=== PATIENT | female | born 1940 | race Caucasian/White ===

== ENCOUNTER → 2017-11-05 13:18 | Outpatient (CLI) | payer OTHER, SELFPAY ==
[2017-11-05 13:52] LABS: Hematocrit 29.9 % (36-46); Hemoglobin 10.3 g/dL (12.0-16.0)
[2017-11-05 14:05] LABS: Hemoglobin A1C% w Est Avg Glu 7.8 % (4.0-6.0)
[2017-11-05 14:32] LABS: HEMOLYSIS < 15 (0-50); Iron 42 ug/dL (37-170)
[2017-11-05 14:39] LABS: Transferrin 228 mg/dL (206-381)
[2017-11-05 14:44] LABS: Percent Iron Saturation 14 % (15-50); Total Iron Binding Capacity 301 ug/mL (265-497)
[2017-11-05 14:47] LABS: Alanine Aminotransferase 25 IU/L (9-52); Albumin Globulin Ratio 1.4 (1.0-2.8); Alkaline Phosphatase 78 U/L (38-126); Aspartate Aminotransferase 20 IU/L (14-36); BUN Creatinine Ratio 18.5 (6-22); Bilirubin Total 0.4 mg/dL (0.2-1.3); Calcium 10.6 mg/dL (8.4-10.2); Estimated Glomerular Filt Rate 13.6 mL/min (>60); Globulin 2.9 g/dL (1.7-4.1); Glucose 206 mg/dL (80-110); HEMOLYSIS 18 (0-50); Potassium 3.7 mmol/L (3.4-5.1); Sodium 141 mmol/L (137-145); Total Protein 6.9 g/dL (6.3-8.2)
[2017-11-05 15:07] LABS: Ferritin 79.1 ng/mL (11.1-264)
[2017-11-09 13:30] LABS: Parathyroid Hormone Int 9 pg/mL (14-64)
== END ==
PROVIDERS: Family Provider Family Medicine; PCP Family Medicine; Visit Provider Student in an Organized Health Care Education/Training Program
DX: N05.9 Unspecified nephritic syndrome with unspecified morphologic changes (principal); D50.0 Iron deficiency anemia secondary to blood loss (chronic); D64.9 Anemia, unspecified; N25.81 Secondary hyperparathyroidism of renal origin; E11.319 Type 2 diabetes mellitus with unspecified diabetic retinopathy without macular edema; E11.21 Type 2 diabetes mellitus with diabetic nephropathy
CPT/HCPCS: 36415; 80053; 82728; 83036; 83540; 83550; 83970; 85014; 85018

== ENCOUNTER → 2017-12-30 14:39 | Outpatient (CLI) | payer OTHER, SELFPAY ==
[2017-12-30 15:39] LABS: Hematocrit 29.4 % (36-46); Hemoglobin 9.8 g/dL (12.0-16.0)
[2017-12-30 15:59] LABS: BUN Creatinine Ratio 15.5 (6-22); Blood Urea Nitrogen 48 mg/dL (7-17); Calcium 9.4 mg/dL (8.4-10.2); Carbon Dioxide 30 mmol/L (22-32); Chloride 100 mmol/L (98-107); Estimated Glomerular Filt Rate 14.6 mL/min (>60); Glucose 83 mg/dL (80-110); HEMOLYSIS < 15 (0-50); Iron 75 ug/dL (37-170); Potassium 3.7 mmol/L (3.4-5.1); Sodium 140 mmol/L (137-145)
[2017-12-30 16:09] LABS: Percent Iron Saturation 26 % (15-50); Total Iron Binding Capacity 294 ug/dL (265-497); Transferrin 234 mg/dL (206-381)
[2017-12-30 16:34] LABS: Ferritin 73.3 ng/mL (11.1-264)
[2018-01-01 15:07] LABS: Parathyroid Hormone Int 114 pg/mL (14-64)
== END ==
PROVIDERS: PCP Family Medicine; Visit Provider Student in an Organized Health Care Education/Training Program
DX: N05.9 Unspecified nephritic syndrome with unspecified morphologic changes (principal); D50.0 Iron deficiency anemia secondary to blood loss (chronic); D64.9 Anemia, unspecified; N25.81 Secondary hyperparathyroidism of renal origin
CPT/HCPCS: 36415; 80048; 82728; 83540; 83550; 83970; 85014; 85018

== ENCOUNTER → 2018-02-11 11:42 | Outpatient (CLI) | payer OTHER, SELFPAY ==
[2018-02-11 12:22] LABS: Hematocrit 28.4 % (36-46); Hemoglobin 9.7 g/dL (12.0-16.0)
[2018-02-11 12:34] LABS: BUN Creatinine Ratio 16.2 (6-22); Blood Urea Nitrogen 55 mg/dL (7-17); Calcium 9.2 mg/dL (8.4-10.2); Carbon Dioxide 23 mmol/L (22-32); Chloride 105 mmol/L (98-107); Estimated Glomerular Filt Rate 13.1 mL/min (>60); Glucose 105 mg/dL (80-110); HEMOLYSIS < 15 (0-50); Potassium 3.5 mmol/L (3.4-5.1); Sodium 142 mmol/L (137-145)
[2018-02-11 12:40] LABS: HEMOLYSIS < 15 (0-50); Iron 49 ug/dL (37-170)
[2018-02-11 12:50] LABS: Percent Iron Saturation 17 % (15-50); Total Iron Binding Capacity 291 ug/dL (265-497); Transferrin 237 mg/dL (206-381)
[2018-02-11 13:04] LABS: Ferritin 82.7 ng/mL (11.1-264)
[2018-02-15 14:48] LABS: Parathyroid Hormone Int 147 pg/mL (14-64)
== END ==
PROVIDERS: PCP Family Medicine; Visit Provider Student in an Organized Health Care Education/Training Program
DX: N05.9 Unspecified nephritic syndrome with unspecified morphologic changes (principal); D50.0 Iron deficiency anemia secondary to blood loss (chronic); D64.9 Anemia, unspecified; N25.81 Secondary hyperparathyroidism of renal origin
CPT/HCPCS: 36415; 80048; 82728; 83540; 83550; 83970; 85014; 85018

== ENCOUNTER → 2018-03-17 10:35 | Outpatient (CLI) | payer OTHER, SELFPAY ==
[2018-03-17 11:28] LABS: Hematocrit 29.7 % (36-46); Hemoglobin 10.1 g/dL (12.0-16.0)
[2018-03-17 11:46] LABS: Hemoglobin A1C% w Est Avg Glu 5.7 % (4.0-6.0)
[2018-03-17 11:52] LABS: HEMOLYSIS < 15 (0-50); Iron 36 ug/dL (37-170)
[2018-03-17 11:56] LABS: Alanine Aminotransferase 36 IU/L (9-52); Albumin 3.7 g/dL (3.5-5.0); Albumin Globulin Ratio 1.4 (1.0-2.8); Alkaline Phosphatase 87 U/L (38-126); Aspartate Aminotransferase 30 IU/L (14-36); BUN Creatinine Ratio 14.7 (6-22); Bilirubin Total 0.4 mg/dL (0.2-1.3); Blood Urea Nitrogen 56 mg/dL (7-17); Calcium 9.6 mg/dL (8.4-10.2); Carbon Dioxide 19 mmol/L (22-32); Chloride 110 mmol/L (98-107); Estimated Glomerular Filt Rate 11.5 mL/min (>60); Globulin 2.7 g/dL (1.7-4.1); Glucose 79 mg/dL (80-110); HEMOLYSIS < 15 (0-50); Potassium 4.9 mmol/L (3.4-5.1); Sodium 144 mmol/L (137-145); Total Protein 6.4 g/dL (6.3-8.2)
[2018-03-17 12:02] LABS: Percent Iron Saturation 12 % (15-50); Total Iron Binding Capacity 292 ug/dL (265-497); Transferrin 239 mg/dL (206-381)
== END ==
PROVIDERS: Family Provider Family Medicine; PCP Family Medicine; Visit Provider Student in an Organized Health Care Education/Training Program
DX: D50.0 Iron deficiency anemia secondary to blood loss (chronic) (principal); D64.9 Anemia, unspecified; I50.32 Chronic diastolic (congestive) heart failure; N05.9 Unspecified nephritic syndrome with unspecified morphologic changes; E11.21 Type 2 diabetes mellitus with diabetic nephropathy; E11.319 Type 2 diabetes mellitus with unspecified diabetic retinopathy without macular edema
CPT/HCPCS: 36415; 80053; 82728; 83036; 83540; 83550; 83880; 85014; 85018

== ENCOUNTER → 2018-03-22 12:34 | Outpatient (CLI) | payer OTHER, SELFPAY ==
--- NOTE | 2018-03-22 | DI.RAD.S_ITS ---
PROCEDURE: XR CHEST 2V INDICATIONS: SHORTNESS OF BREATH TECHNIQUE: 2 views of the chest were acquired. COMPARISON: [facility], , CHEST 2 VIEW, 04/12/2015, 10:38. FINDINGS: Surgical changes and devices: None. Lungs and pleura: The bilateral interstitial infiltrates consistent with pulmonary edema. Small bilateral pleural effusions are present. There is a nodular density in the left lung base. No pneumothorax. Mediastinum: Mediastinal contours are normal. Heart size is mildly prominent. Bones and chest wall: No suspicious bony abnormalities. Soft tissues appear unremarkable. IMPRESSION: 1. Congestive heart failure. 2. A nodular density in the left lung base. Recommend attention to the area on followup chest x-ray. If it persists on followup exam, a chest CT is suggested for further evaluation. Dictated by: Leti Simmons M.D. on 03/22/2018 at 17:04 Approved by: Leti Simmons M.D. on 03/22/2018 at 17:06
[2018-03-22 15:45] LABS: Hepatitis B Surface Antigen NEGATIVE s/c (NEGATIVE)
[2018-03-22 16:09] LABS: Hep C Virus Ab w/Reflex Quant NEGATIVE s/c (NEGATIVE)
[2018-03-25 07:18] LABS: Hepatitis B Core Antibody Nonreactive (Nonreactive)
[2018-03-25 07:51] LABS: Hepatitis B Surf Ab Qualitativ Nonreactive (Nonreactive)
== END ==
PROVIDERS: Family Provider Family Medicine; PCP Family Medicine; Visit Provider Student in an Organized Health Care Education/Training Program
DX: R06.02 Shortness of breath (principal); E87.70 Fluid overload, unspecified; B19.10 Unspecified viral hepatitis B without hepatic coma; B17.10 Acute hepatitis C without hepatic coma
CPT/HCPCS: 36415; 71046; 86704; 86706; 86803; 87340

== ENCOUNTER → 2018-06-06 12:57 | Outpatient (CLI) | payer OTHER, SELFPAY ==
--- NOTE | 2018-06-06 12:58 | DI.RAD.S_ITS ---
PROCEDURE: XR CHEST 2V INDICATIONS: Pulmonary nodule TECHNIQUE: 2 views of the chest were acquired. COMPARISON: [facility], CR, XR CHEST 2V, 03/22/2018, 12:56. FINDINGS: Surgical changes and devices: None. Lungs and pleura: No pleural effusions or pneumothorax. Lungs are clear. A previously seen left basilar pulmonary nodule has resolved Mediastinum: Mediastinal contours are normal. Heart size is normal. Bones and chest wall: No suspicious bony abnormalities. Soft tissues appear unremarkable. IMPRESSION: No acute disease. Previous left basilar nodular opacity has resolved since 03/22/18. Dictated by: Doroteo Thorne M.D. on 06/06/2018 at 14:43 Approved by: Doroteo Thorne M.D. on 06/06/2018 at 14:44
== END ==
PROVIDERS: PCP Family Medicine; Visit Provider Family Medicine
DX: R91.1 Solitary pulmonary nodule (principal)
CPT/HCPCS: 71046

== ENCOUNTER → 2018-07-15 09:08 | Outpatient (CLI) | payer MEDICARE, SELFPAY ==
[2018-07-15 09:46] LABS: Hemoglobin A1C% w Est Avg Glu 6.9 % (4.0-6.0)
[2018-07-15 09:58] LABS: Alanine Aminotransferase 18 IU/L (9-52); Albumin 4.3 g/dL (3.5-5.0); Albumin Globulin Ratio 1.5 (1.0-2.8); Alkaline Phosphatase 109 U/L (38-126); Aspartate Aminotransferase 21 IU/L (14-36); Bilirubin Total 0.3 mg/dL (0.2-1.3); Blood Urea Nitrogen 21 mg/dL (7-17); Calcium 9.2 mg/dL (8.4-10.2); Carbon Dioxide 26 mmol/L (22-32); Chloride 100 mmol/L (98-107); Estimated Glomerular Filt Rate 15.2 mL/min (>60); Globulin 2.9 g/dL (1.7-4.1); Glucose 110 mg/dL (80-110); HEMOLYSIS < 15 (0-50); Potassium 4.2 mmol/L (3.4-5.1); Sodium 139 mmol/L (137-145); Total Protein 7.2 g/dL (6.3-8.2)
== END ==
PROVIDERS: PCP Family Medicine; Visit Provider Family Medicine
DX: E11.22 Type 2 diabetes mellitus with diabetic chronic kidney disease (principal); I10 Essential (primary) hypertension; Z79.4 Long term (current) use of insulin
CPT/HCPCS: 36415; 80053; 83036

== ENCOUNTER → 2018-10-14 08:42 | Outpatient (CLI) | payer MEDICARE, SELFPAY ==
[2018-10-14 09:33] LABS: Add Manual Diff / Slide Review NO; Basophils Absolute Auto 100 /uL (0-100); Basophils Percent Auto 1.5 % (0-2); Eosinophils Absolute Auto 300 /uL (0-450); Eosinophils Percent Auto 5.4 % (2-4); Hematocrit 31.9 % (36-46); Hemoglobin 11.1 g/dL (12.0-16.0); Lymphocytes Absolute Auto 1400 /uL (1100-4500); Lymphocytes Percent Auto 29.5 % (25-40); Mean Corpuscular HGB Conc 34.8 % (30-36); Mean Corpuscular Hemoglobin 34.8 PG (26-34); Monocytes Absolute Auto 500 /uL (0-900); Monocytes Percent Auto 9.7 % (3-14); Neutrophils Absolute Auto 2600 /uL (1500-7000); Neutrophils Percent Auto 53.9 % (50-75); Platelet Count 230 X10^3/uL (150-400); Red Blood Cell Count 3.19 X10^6/uL (4.0-5.2); Red Cell Distribution Width 14.4 % (11.6-14.8); White Blood Cell Count 4.8 X10^3/uL (4.5-11.0)
[2018-10-14 09:48] LABS: Hemoglobin A1C% w Est Avg Glu 6.4 % (4.0-6.0)
[2018-10-14 09:50] LABS: Alanine Aminotransferase 14 IU/L (9-52); Albumin 4.3 g/dL (3.5-5.0); Albumin Globulin Ratio 1.5 (1.0-2.8); Alkaline Phosphatase 109 U/L (38-126); Aspartate Aminotransferase 23 IU/L (14-36); BUN Creatinine Ratio 7.4 (6-22); Bilirubin Total 0.5 mg/dL (0.2-1.3); Blood Urea Nitrogen 26 mg/dL (7-17); Calcium 8.7 mg/dL (8.4-10.2); Carbon Dioxide 27 mmol/L (22-32); Chloride 96 mmol/L (98-107); Cholesterol 123 mg/dL (140-199); Estimated Glomerular Filt Rate 12.7 mL/min (>60); Globulin 2.9 g/dL (1.7-4.1); Glucose 151 mg/dL (80-110); HDL Cholesterol 47 mg/dL (40-60); HEMOLYSIS < 15 (0-50); LDL Cholesterol Calculated 53 mg/dL (<100); Sodium 136 mmol/L (137-145); Total Protein 7.2 g/dL (6.3-8.2); Triglycerides 114 mg/dL (35-150)
[2018-10-14 14:19] LABS: Thyroid Stimulating Hormone 2.62 uIU/mL (0.47-4.68)
== END ==
PROVIDERS: PCP Family Medicine; Visit Provider Family Medicine
DX: E03.9 Hypothyroidism, unspecified (principal); E11.22 Type 2 diabetes mellitus with diabetic chronic kidney disease; I10 Essential (primary) hypertension; Z51.81 Encounter for therapeutic drug level monitoring; Z79.4 Long term (current) use of insulin
CPT/HCPCS: 36415; 80053; 80061; 83036; 84443; 85025

== ENCOUNTER → 2019-01-25 09:22 | Outpatient (CLI) | payer MEDICARE, SELFPAY ==
[2019-01-25 11:04] LABS: Alanine Aminotransferase 11 IU/L (9-52); Albumin 4.2 g/dL (3.5-5.0); Albumin Globulin Ratio 1.6 (1.0-2.8); Alkaline Phosphatase 116 U/L (38-126); Aspartate Aminotransferase 21 IU/L (14-36); Bilirubin Total 0.4 mg/dL (0.2-1.3); Blood Urea Nitrogen 28 mg/dL (7-17); Calcium 9.2 mg/dL (8.4-10.2); Carbon Dioxide 27 mmol/L (22-32); Chloride 99 mmol/L (98-107); Cholesterol 110 mg/dL (140-199); Estimated Glomerular Filt Rate 10.9 mL/min (>60); Globulin 2.7 g/dL (1.7-4.1); Glucose 108 mg/dL (80-110); HDL Cholesterol 53 mg/dL (40-60); HEMOLYSIS < 15 (0-50); LDL Cholesterol Calculated 37 mg/dL (<100); Potassium 4.8 mmol/L (3.4-5.1); Sodium 140 mmol/L (137-145); Total Protein 6.9 g/dL (6.3-8.2); Triglycerides 101 mg/dL (35-150)
[2019-01-25 11:12] LABS: Hemoglobin A1C% w Est Avg Glu 6.8 % (4.0-6.0)
== END ==
PROVIDERS: PCP Family Medicine; Visit Provider Family Medicine
DX: E78.5 Hyperlipidemia, unspecified (principal); E11.22 Type 2 diabetes mellitus with diabetic chronic kidney disease; Z79.4 Long term (current) use of insulin; Z99.2 Dependence on renal dialysis
CPT/HCPCS: 36415; 80053; 80061; 83036

== ENCOUNTER → 2019-01-27 11:27 | Outpatient (CLI) | payer MEDICARE, SELFPAY ==
[2019-01-27 12:09] LABS: Thyroid Stimulating Hormone 3.43 uIU/mL (0.47-4.68)
== END ==
PROVIDERS: PCP Family Medicine; Visit Provider Family Medicine
DX: E11.22 Type 2 diabetes mellitus with diabetic chronic kidney disease (principal); Z79.4 Long term (current) use of insulin
CPT/HCPCS: 84443

== ENCOUNTER → 2019-12-11 09:53 | Outpatient (CLI) | payer MEDICARE, SELFPAY ==
[2019-12-11 11:26] LABS: Add Manual Diff / Slide Review NO; Basophils Absolute Auto 100 /uL (0-100); Basophils Percent Auto 1.8 % (0-2); Eosinophils Absolute Auto 300 /uL (0-450); Hematocrit 35.7 % (36-46); Hemoglobin 12.1 g/dL (12.0-16.0); Lymphocytes Absolute Auto 1800 /uL (1100-4500); Lymphocytes Percent Auto 28.5 % (25-40); Mean Corpuscular HGB Conc 33.9 % (30-36); Mean Corpuscular Hemoglobin 34.2 PG (26-34); Monocytes Absolute Auto 500 /uL (0-900); Monocytes Percent Auto 8.4 % (3-14); Neutrophils Absolute Auto 3600 /uL (1500-7000); Neutrophils Percent Auto 57.3 % (50-75); Platelet Count 281 X10^3/uL (150-400); Red Blood Cell Count 3.53 X10^6/uL (4.0-5.2); Red Cell Distribution Width 14.3 % (11.6-14.8); White Blood Cell Count 6.3 X10^3/uL (4.5-11.0)
[2019-12-11 11:31] LABS: Hemoglobin A1C% w Est Avg Glu 6.9 % (4.0-6.0)
[2019-12-11 12:13] LABS: Alanine Aminotransferase 14 IU/L (<35); Albumin 4.2 g/dL (3.5-5.0); Albumin Globulin Ratio 1.7 (1.0-2.8); Alkaline Phosphatase 123 U/L (38-126); Aspartate Aminotransferase 22 IU/L (14-36); BUN Creatinine Ratio 7.3 (6-22); Bilirubin Total 0.4 mg/dL (0.2-1.3); Blood Urea Nitrogen 41 mg/dL (7-17); Calcium 9.3 mg/dL (8.4-10.2); Carbon Dioxide 25 mmol/L (22-32); Chloride 96 mmol/L (98-107); Estimated Glomerular Filt Rate 7.4 mL/min (>60); Globulin 2.5 g/dL (1.7-4.1); Glucose 122 mg/dL (80-110); HEMOLYSIS < 15 (0-50); Potassium 4.6 mmol/L (3.4-5.1); Sodium 136 mmol/L (137-145); Total Protein 6.7 g/dL (6.3-8.2)
== END ==
PROVIDERS: PCP Family Medicine; Referring Provider Family Medicine; Visit Provider Family Medicine
DX: E11.22 Type 2 diabetes mellitus with diabetic chronic kidney disease (principal); Z79.4 Long term (current) use of insulin
CPT/HCPCS: 36415; 80053; 83036; 85025

== ENCOUNTER → 2020-07-26 10:26 | Outpatient (CLI) | payer MEDICARE, SELFPAY ==
[2020-07-26] MEDS: COVID-19 VACC #1, MRNA(MOD) 100 MCG/0.5 ML VIAL IM (10:31)
== END ==
PROVIDERS: PCP Family Medicine; Visit Provider Internal Medicine
DX: Z23 Encounter for immunization (principal)
CPT/HCPCS: 0011A; 91301

== ENCOUNTER → 2020-08-22 15:42 | Outpatient (CLI) | payer MEDICARE, SELFPAY ==
[2020-08-22] MEDS: COVID-19 VACC #2, MRNA(MOD) 100 MCG/0.5 ML VIAL IM (15:45)
== END ==
PROVIDERS: PCP Family Medicine; Visit Provider Internal Medicine
DX: Z23 Encounter for immunization (principal)
CPT/HCPCS: 0012A; 91301

== ENCOUNTER → 2021-04-02 10:58 | Outpatient (CLI) | payer MEDICARE, SELFPAY ==
[2021-04-02 11:41] LABS: Add Manual Diff / Slide Review NO; Basophils Absolute Auto 100 /uL (0-100); Basophils Percent Auto 1.2 % (0-2); Eosinophils Absolute Auto 100 /uL (0-450); Eosinophils Percent Auto 1.9 % (2-4); Hematocrit 34.4 % (36-46); Hemoglobin 11.3 g/dL (12.0-16.0); Lymphocytes Absolute Auto 1400 /uL (1100-4500); Lymphocytes Percent Auto 18.3 % (25-40); Mean Corpuscular HGB Conc 32.7 % (30-36); Mean Corpuscular Hemoglobin 33.6 PG (26-34); Mean Corpuscular Volume 102.8 fL (80-100); Monocytes Absolute Auto 500 /uL (0-900); Monocytes Percent Auto 6.7 % (3-14); Neutrophils Absolute Auto 5400 /uL (1500-7000); Neutrophils Percent Auto 71.9 % (50-75); Platelet Count 286 X10^3/uL (150-400); Red Blood Cell Count 3.35 X10^6/uL (4.0-5.2); White Blood Cell Count 7.5 X10^3/uL (4.5-11.0)
[2021-04-02 11:49] LABS: HEMOLYSIS < 15 (0-50); Iron 86 ug/dL (37-170)
[2021-04-02 11:51] LABS: Alanine Aminotransferase 15 IU/L (<35); Albumin 4.5 g/dL (3.5-5.0); Albumin Globulin Ratio 1.7 (1.0-2.8); Alkaline Phosphatase 129 U/L (38-126); Aspartate Aminotransferase 21 IU/L (14-36); BUN Creatinine Ratio 7.3 (6-22); Bilirubin Total 0.5 mg/dL (0.2-1.3); Blood Urea Nitrogen 37 mg/dL (7-17); Calcium 9.2 mg/dL (8.4-10.2); Carbon Dioxide 27 mmol/L (22-32); Chloride 92 mmol/L (98-107); Estimated Glomerular Filt Rate 8.3 mL/min (>60); Globulin 2.6 g/dL (1.7-4.1); Glucose 224 mg/dL (80-110); HEMOLYSIS < 15 (0-50); Potassium 5.2 mmol/L (3.4-5.1); Sodium 136 mmol/L (137-145); Total Protein 7.1 g/dL (6.3-8.2); Uric Acid 3.4 mg/dL (2.5-6.2)
[2021-04-02 11:58] LABS: Hemoglobin A1C% w Est Avg Glu 7.9 % (4.0-6.0)
[2021-04-02 12:00] LABS: Percent Iron Saturation 29 % (15-50); Total Iron Binding Capacity 292 ug/dL (265-497); Transferrin 233 mg/dL (206-381)
[2021-04-02 12:07] LABS: Free T4, Direct Thyroxine 1.25 ng/dL (0.78-2.19)
[2021-04-02 12:18] LABS: TSH w/ Reflex to FT4 4.56 uIU/mL (0.47-4.68)
[2021-04-02 12:21] LABS: Thyroid Stimulating Hormone 4.58 uIU/mL (0.47-4.68)
[2021-04-02 12:54] LABS: Folate > 20.0 ng/mL (2.76-20.0); Vitamin B12 614 pg/mL (239-931)
[2021-04-03 13:36] LABS: Calcium 9.1 mg/dL (8.7-10.3); Parathyroid Hormone, Intact 437 pg/mL (15-65)
== END ==
PROVIDERS: PCP Family Medicine; Referring Provider Family Medicine; Visit Provider Family Medicine
DX: D64.9 Anemia, unspecified (principal); E11.22 Type 2 diabetes mellitus with diabetic chronic kidney disease; E03.9 Hypothyroidism, unspecified; I10 Essential (primary) hypertension; N18.9 Chronic kidney disease, unspecified; Z79.4 Long term (current) use of insulin; Z99.2 Dependence on renal dialysis; D35.1 Benign neoplasm of parathyroid gland
CPT/HCPCS: 36415; 80053; 82310; 82607; 82746; 83036; 83540; 83550; 83970; 84439; 84443; 84550; 85025

== ENCOUNTER → 2021-04-16 10:28 | Outpatient (CLI) | payer MEDICARE, SELFPAY ==
--- NOTE | 2021-04-16 10:30 | DI.US.S_ITS ---
PROCEDURE: US THYROID INDICATIONS: HISTORY OF PARATHYROID ADENOMA. ELEVATED PTH. TECHNIQUE: Real-time scanning was performed of the thyroid gland, with image documentation. COMPARISON: [facility], US, THYROID, 07/19/2013, 11:19. FINDINGS: The thyroid has been previously removed. No recurrent thyroid tissue can be seen. No abnormalities can be seen within the thyroid bed. Along the inferior left parotid gland, there is a heterogeneous mildly hyperechoic lesion with internal vascularity that measures 19 x 13 x 10 mm. No significant similar abnormality can be seen involving right parotid gland. IMPRESSION: Status post thyroidectomy, without recurrent tissue. No abnormalities can be seen within the thyroid bed. Incidental note is made of a 1.9 cm heterogeneous lesion of the left parotid gland. For further evaluation, please now consider a neck CT with IV contrast. Dictated by: Jam Younger M.D. on 04/16/2021 at 14:02 Approved by: Jam Younger M.D. on 04/16/2021 at 14:04
== END ==
PROVIDERS: PCP Family Medicine; Referring Provider Family Medicine; Visit Provider Family Medicine
DX: D35.1 Benign neoplasm of parathyroid gland (principal)
CPT/HCPCS: 76536

== ENCOUNTER → 2021-04-30 12:37 | Outpatient (CLI) | payer MEDICARE, SELFPAY ==
--- NOTE | 2021-04-30 12:38 | DI.CT.S_ITS ---
PROCEDURE: CT SOFT TISSUE NECK WO CON INDICATIONS: Presumptive left parathyroid adenoma, TECHNIQUE: No IV contrast was given, secondary to renal insufficiency. Non-contrast 3.0 mm axial sections acquired from the sella to the aortic arch. Additional oblique axial 3.0 mm sections acquired through the pharynx. 3 mm thick coronal and sagittal reformats were generated. For radiation dose reduction, the following was used: automated exposure control. COMPARISON: [facility], US THYROID, 04/16/2021, 10:52. [place], PARATHYROID IMAGING WITH SPECT, 09/25/2013, 9:52. [facility], THYROID, 07/19/2013, 11:19. FINDINGS: Image quality: Excellent. Lymph nodes: No enlarged lymph nodes seen throughout the neck. Vessels: Non-opacified vessels appear normal in caliber. Atherosclerotic calcification is noted. Neck spaces: Calcified foci are seen associated with the tonsils, right worse than left, as on series 2, images 32 and 33. The oropharynx, nasopharynx, and pharynx demonstrate no mucosal lesions. The vocal cords, false vocal cords, pyriform sinuses, epiglottis, vallecula, and tongue base all appear normal. Extramucosal spaces appear unremarkable. Glands: In this patient with this given history, scrutiny is given to a recurrent left parathyroid adenoma. To the limits of this noncontrast study, no masses are seen within the expected location of the left parathyroid bed. The prior ultrasound demonstrated an abnormality within the inferior left parotid gland. On the current study, there is an ovoid hyperechoic focus seen, as on series 2, image 23 that measures up to 7 mm. The submandibular glands appear normal, without stones. Prior thyroidectomy. Miscellaneous: Visualized brain and orbits appear normal. Lung apices appear clear. Superficial soft tissues appear normal. At least moderate cervical spine degenerative change can be seen. IMPRESSION: To the limits of noncontrast CT, no recurrent parathyroid masses are seen. If clinically appropriate, please consider a follow-up nuclear medicine parathyroid scan. Prior thyroidectomy. Likely normal lymph node within the left inferior parotid gland. Note is made of calcified foci involving the tonsils, which are felt most likely be related to tonsilloliths. Dictated by: Jam Younger M.D. on 04/30/2021 at 15:12 Approved by: Jam Younger M.D. on 04/30/2021 at 15:17
== END ==
PROVIDERS: PCP Family Medicine; Referring Provider Family Medicine; Visit Provider Family Medicine
DX: D35.1 Benign neoplasm of parathyroid gland (principal)
CPT/HCPCS: 70490

== ENCOUNTER 2022-04-20 16:34 | Emergency (ER) | payer MEDICARE, SELFPAY ==
[2022-04-20] VITALS (10 sets, daily range): BP systolic 117–156; BP diastolic 55–67; PULSE 71–78; RESP 12–22; TEMP 36.6; O2SAT 94–97; BMI 34.1
[2022-04-20] MEDS: ONDANSETRON 4 MG ODT SL (17:34)
--- NOTE | 2022-04-20 18:10 | DI.RAD.S_ITS ---
PROCEDURE: XR CHEST 1V INDICATIONS: dizzy TECHNIQUE: One view of the chest was acquired. COMPARISON: [facility], CR, XR CHEST 2V, 06/06/2018, 13:04. FINDINGS: Surgical changes and devices: None. Lungs and pleura: Lungs are clear. No pleural effusions or pneumothorax. Mediastinum: Mediastinal contours appear normal. Heart size is normal. Bones and chest wall: No suspicious bony lesions. Overlying soft tissues appear unremarkable. IMPRESSION: No acute cardiopulmonary disease. Dictated by: Leti Simmons M.D. on 04/20/2022 at 19:59 Approved by: Leti Simmons M.D. on 04/20/2022 at 20:00
--- NOTE | 2022-04-20 18:11 | ED_ITS ---
HPI - Dizziness General Chief Complaint: Dizziness Stated Complaint: Shingles, Reaction to pain medication Time Seen by Provider: 04/20/22 17:50 Mode of arrival: Family Vehicle History of Present Illness HPI Narrative: Patient is a 81-year-old female history of end-stage renal disease on dialysis Wednesday, diagnosed with shingles on 04/14/2022 started on pain medication and antivirals. Apparently pain medications have made her nauseous she has been unable to eat. See overall been a very weeks she has had some chest discomfort but thought it was due to shingles no longer having chest pain. She missed her dialysis on but did go on Wednesday. She says she is dizzy and lightheaded every time she stands up she is not passed out. No abdominal pain. Diffusely weak Related Data Home Medications Medication Instructions Recorded Confirmed polyvinyl alcohol-povidone 0.5 1 [facility] ##0 10/26/16 04/19/22 %-0.6 % eye drops (Artificial Tears (polyvinyl alcohol/povidone)) felodipine 5 mg tablet,extended 5 mg PO DAILY 03/18/18 04/19/22 release 24 hr acetaminophen 650 mg 650 mg PO BID 06/08/18 04/19/22 tablet,extended release (Tylenol Arthritis Pain) aflibercept 2 mg/0.05 mL intravitreal PRN 06/08/18 04/19/22 intravitreal solution for injection (Eylea) sevelamer PO TID 09/16/18 04/19/22 beclomethasone dipropionate 40 1 puff inhalation BID PRN 01/27/19 04/19/22 mcg/actuation HFA breath activated aerosol (Qvar RediHaler) ipratropium bromide 42 mcg (0.06 2 spray intranasal TID 08/14/19 04/19/22 %) nasal spray krill 1,000 mg-omega-3 170 mg-dha 2 cap PO ONCE PRN 01/23/22 04/19/22 50 mg-epa 80 [id number] capsule (krill oil) Previous Rx's Medication Instructions Recorded fluticasone propionate 50 1 spray intranasal DAILY PRN nasal 03/18/18 mcg/actuation nasal congestion #18.2 grams spray,suspension parking permit #1 ea 06/26/19 Glucose: Test Strips #150 ea 01/01/20 blood sugar diagnostic (Blood #300 ea 05/13/21 Glucose Test strips) blood-glucose meter #1 ea 05/13/21 lancets 33 gauge (BD Ultra Fine #300 ea 05/13/21 Lancets) insulin detemir U-100 100 unit/mL 30 unit (0.3 mL) SUBCUT BID #15 mL 06/17/21 (3 mL) subcutaneous pen (Levemir FlexTouch U-100 Insulin) insulin lispro 100 unit/mL See Rx Instructions SUBCUT BEDTIME 09/19/21 subcutaneous pen (Humalog KwikPen PRN t2dm #15 mL (U-100) Insulin) sertraline 100 mg tablet See Rx Instructions .Route 09/19/21 .COMPLEX #90 tabs spironolactone 25 mg tablet 25 mg PO DAILY #90 tabs 09/19/21 tramadol 50 mg tablet 50 mg PO Q6H PRN pain #30 tabs 09/19/21 albuterol sulfate 90 mcg/actuation 1 inh inhalation Q6H PRN shortness 01/23/22 aerosol inhaler (ProAir HFA) of breath or wheezing #18 grams allopurinol 300 mg tablet 150 mg PO DAILY #45 tabs 01/23/22 atorvastatin 10 mg tablet 10 mg PO DAILY #90 tabs 01/23/22 furosemide 40 mg tablet 80 mg PO DAILY #180 tabs 01/23/22 levothyroxine 125 mcg tablet See Rx Instructions .Route 01/23/22 .COMPLEX #90 tabs pen needle, diabetic 29 gauge x #100 ea 04/06/22 1/2 (BD Ultra-Fine Original Pen Needle) lidocaine 5 % topical cream 1 applic topical QID PRN pain 04/17/22 shingles 14 days #30 grams valacyclovir 500 mg tablet 500 mg PO DAILY shingles 7 days #7 04/19/22 tabs Allergies Allergy/AdvReac Type Severity Reaction Status Date / Time No Known Drug Allergies Allergy Verified 04/19/22 09:29 Review of Systems Review of Systems Narrative: GENERAL: Denies chills, fatigue, malaise, fever, sweats, travel HEENT: Denies sinus pain, ear pain, sore throat, difficulty swallowing, neck pain RESPIRATORY: Denies dyspnea, cough, wheezing, hemoptysis, sputum. CARDIOVASCULAR: Denies chest pain, palpitations, orthopnea, edema GASTROINTESTINAL: Denies nausea, vomiting, abdominal pain, diarrhea, constipation, melena. : Denies dysuria, frequency, incontinence, hematuria, urinary retention, flank pain. MUSCULOSKELETAL: Denies weakness, joint pain, or bony pain SKIN: Shingles right side torso NEUROLOGIC: Denies weakness, dizziness, headache, numbness, change in speech, confusion PSYCHIATRIC: No concerning psychosocial issues. 12 point review of systems is negative except for those stated above and HPI Patient History Medical History Anemia (Unknown) Arm fracture, left (01/2017) Carpal tunnel syndrome CKD (chronic kidney disease) (Unknown) Diabetes (Unknown) Diabetic retinopathy (Unknown) Gout Hyperlipemia (Unknown) Hypertension (Unknown) Hypothyroidism (Unknown) Osteopenia (Unknown) Parathyroid adenoma (~2012) Surgical History History of parathyroidectomy (~06/2013) Family History Father Heart problem Mother Diabetes mellitus Congestive heart failure Grandfather History of thyroidectomy Grandmother Diabetes mellitus Social History Smoking Status: Never smoker second hand exposure: No alcohol intake: never substance use type: does not use Smoking Status: Never smoker Substance Use Type: does not use Exam Initial Vital Signs Initial Vital Signs: Vital Signs Temperature 97.9 F 04/20/22 16:47 Pulse Rate 76 04/20/22 16:47 Respiratory Rate 17 04/20/22 16:47 Blood Pressure 117/55 L 04/20/22 16:47 Pulse Oximetry 94 04/20/22 16:47 Oxygen Delivery Method 04/20/22 16:47 GENERAL: Alert pleasant 81-year-old female and in [no acute] distress. HEENT: Head atraumatic,EOMI, pupils reactive, face symmetric, [moist] mucous membranes CARDIOVASCULAR: Regular rate and rhythm without murmurs, rubs or gallops. RESPIRATORY: Breath sounds equal bilaterally, no wheezes rales or rhonchi. ABDOMEN: Soft, nontender. Normoactive bowel sounds all 4 quadrants. No guarding or rebound. EXTREMITIES: Normal range of motion, no clubbing or edema. Neurovascularly intact NEUROLOGICAL: Alert and oriented x4.Normal gait and speech. SKIN: Shingles noted high rate torso healing scabbed over lesions mostly anterior Course Orders Ordered: ED Orders 04/20/22 18:00 Complete Blood Count AUTO DIFF Stat Comprehensive Metabolic Panel Stat Lipase Stat Troponin & CK Cardiac Panel Stat 04/20/22 18:10 XR chest 1V Stat EKG-12 Lead Stat 04/20/22 20:58 EKG-12 Lead Routine Discontinued Medications Sodium Chloride (Normal Saline 0.9%) 1,000 mls @ 500 mls/hr IV CONT CRISTOFER Last Infusion: 04/20/22 20:28 Dose: 0 mls/hr Documented By: Admin: 04/20/22 18:15 Dose: 500 mls/hr Documented By: XOCHITL Ondansetron HCl (Ondansetron 4 Mg Odt) 4 mg SL NOW ONE Stop: 04/20/22 17:03 Last Admin: 04/20/22 17:34 Dose: 4 mg Documented By: SAWYER Vital Signs Vital signs: Vital Signs - 8 hr 04/20/22 19:00 04/20/22 19:00 04/20/22 19:30 Pulse Rate 71 Respiratory Rate 13 Blood Pressure 146/66 H 145/63 H Pulse Oximetry 94 04/20/22 19:30 04/20/22 20:00 04/20/22 20:00 Pulse Rate 75 76 Respiratory Rate Blood Pressure 146/64 H Pulse Oximetry 97 95 04/20/22 20:30 04/20/22 20:30 04/20/22 21:00 Pulse Rate 78 Respiratory Rate 12 Blood Pressure 139/61 156/67 H Pulse Oximetry 96 04/20/22 21:00 Pulse Rate 78 Respiratory Rate 22 Blood Pressure Pulse Oximetry 96 MDM - Dizziness Lab Data Result diagrams: 04/20/22 18:00 04/20/22 18:00 Labs: Lab Results 04/20/22 04/20/22 04/20/22 Range/Units 17:31 18:00 18:00 WBC 8.3 (4.5-11.0) X10^3/uL RBC 3.56 L (4.0-5.2) X10^6/uL Hgb 11.9 L (12.0-16.0) g/dL Hct 34.9 L (36-46) % MCV 97.8 (80-100) fL MCH 33.5 (26-34) PG MCHC 34.2 (30-36) % RDW 15.2 H (11.6-14.8) % Plt Count 281 (150-400) X10^3/uL Neut % (Auto) 74.3 (50-75) % Lymph % (Auto) 13.5 L (25-40) % [place] % (Auto) 10.9 (3-14) % Eos % (Auto) 0.7 L (2-4) % Baso % (Auto) 0.6 (0-2) % Neut # (Auto) 6200 (5322-5954) /uL Lymph # (Auto) 1100 (7038-2868) /uL [place] # (Auto) 900 (0-900) /uL Eos # (Auto) 100 (0-450) /uL Baso # (Auto) 100 (0-100) /uL Sodium 134 L (137-145) mmol/L Potassium 4.3 (3.4-5.1) mmol/L Chloride 95 L (98-107) mmol/L Carbon Dioxide 25 (22-32) mmol/L BUN 31 H (7-17) mg/dL Creatinine 5.20 H (0.52-1.04) mg/dL Estimated GFR 8 L (>60) mL/min BUN/Creatinine Ratio 6.0 (6-22) Glucose 212 H (80-110) mg/dL Calcium 8.7 (8.4-10.2) mg/dL Total Bilirubin 0.5 (0.2-1.3) mg/dL AST 17 (14-36) IU/L ALT 15 (<35) IU/L Alkaline Phosphatase 75 (38-126) U/L Total Creatine Kinase 21 L (30-135) U/L CK-MB (CK-2) TNP CK-MB (CK-2) Rel Index TNP Troponin I < 0.012 (0.01-0.034) ng/mL Total Protein 7.1 (6.3-8.2) g/dL Albumin 3.9 (3.5-5.0) g/dL Globulin 3.2 (1.7-4.1) g/dL Albumin/Globulin Ratio 1.2 (1.0-2.8) Lipase 55 (23-300) U/L SARS-CoV-2 (PCR) Negative (Negative) Imaging Data Chest x-ray: Radiologist's Impression: Signed Patient: Joanne Crisostomo MR#: [id number] : 1940 Acct:[id number] Age/Sex: 81 / F Date of Service: 04/20/22 Loc: ED Accession Number: [id number] ?? Procedure: XR chest 1V Ordering Provider: Lay Fried D.O. PROCEDURE:? XR CHEST 1V ? INDICATIONS:? dizzy ? TECHNIQUE:? One view of the chest was acquired.? ? COMPARISON:? [facility], , XR CHEST 2V, 06/06/2018, 13:04. ? FINDINGS:? ? Surgical changes and devices:? None.? ? Lungs and pleura:? Lungs are clear.? No pleural effusions or pneumothorax.? ? Mediastinum:? Mediastinal contours appear normal.? Heart size is normal.? ? Bones and chest wall:? No suspicious bony lesions.? Overlying soft tissues appear unremarkable.? ? IMPRESSION:? No acute cardiopulmonary disease. ? ? Dictated by: Leti Simmons M.D. on 04/20/2022 at 19:59 ? ? ECG Data Interpretation: EKG 1. Artifact is noted sinus rhythm rate 74 priors to compare EKG 2. Sinus rhythm rate 80 p.r. interval 190 QRS [address] changes no T- wave inversions Q-waves noted in lead 3 and AVF low voltage MDM Narrative Medical decision making narrative: The patient is found to be weak. She has had some diarrhea not eating or drinking. Pain medications made her nauseated and not able to tolerate oral intake. Pain is better controlled lidocaine cream. If that seems to be working. She is given a L of fluid actually seems to help her dizziness and her symptoms. She is to go to dialysis tomorrow. At this time is not hypoxic shingles look to be healing. No indication for admission. She has no focal deficits to suggest a stroke. Likely weak and dizzy from dehydration. Discharge Plan Departure Patient Disposition: Home Clinical Impression: Dehydration Instructions: DI for Dehydration -- Adult Activity Restrictions/Additional Instructions: *You have been diagnosed with dehydration and diarrhea *What to do: Please increase fluid. Take medications as needed *Continue to take medications as directed *Follow up with your primary care provider in 2-3 days or call [phone] *Return to ER if you should have increasing dizziness lightheadedness persistent diarrhea increasing pain or any new, worsening or concerning symptoms Prescriptions: No Action valacyclovir 500 mg tablet 500 mg PO DAILY MDD 500mg 7 Days Qty: 7 0RF felodipine 5 mg tablet extended release 24 hr 5 mg PO DAILY acetaminophen [Tylenol Arthritis Pain] 650 mg tablet extended release 650 mg PO BID aflibercept [Eylea] 2 mg/0.05 mL solution INTRAVITRE PRN Label Comments: Dr. Quezada for DMR & DR [id number] [krill oil] [id number],[id number] mg capsule 2 cap PO ONCE PRN sevelamer PO TID polyvinyl alcohol-povidone [Artificial Tears(pvalch-povid)] 15 ML drops 1 drp OPHTH QID Qty: 0 fluticasone propionate 50 mcg/actuation spray,suspension 1 spray NASAL DAILY PRN (Reason: nasal congestion) Qty: 18.2 2RF Rx Instructions: administer into each nostril (DME) Glucose: Test Strips 0 .Route .MEDSUPPLY Qty: 150 3RF Dose Instruction: As directed Rx Instructions: Use to test blood sugars twice daily. One touch Nadya. (DME) Blood Glucose Test Strip See Rx Instructions .ROUTE .MEDSUPPLY Qty: 300 8RF Rx Instructions: Use to test blood glucose TID (DME) lancets [BD Ultra Fine Lancets] 33 gauge misc See Rx Instructions .ROUTE .MEDSUPPLY Qty: 300 8RF Rx Instructions: Use to test blood glucose TID Levemir FlexTouch U-100 Insuln 100 unit/mL (3 mL) insulin pen 30 unit SUBCUT BID Qty: 15 10RF (DME) pen needle, diabetic [BD Ultra-Fine Orig Pen Needle] 29 gauge x 1/2 needle See Rx Instructions .Route Qty: 100 3RF Rx Instructions: Use with Kwik Pen to inject insulin TID according to sliding scale. lidocaine 5 % cream 1 applic topical QID PRN (Reason: pain shingles) 14 Days Qty: 30 0RF (DME) parking permit Qty: 1 0RF Rx Instructions: As directed (DME) blood-glucose meter Kit See Rx Instructions .ROUTE .MEDSUPPLY Qty: 1 0RF Rx Instructions: Use to test blood glucose TID albuterol sulfate [ProAir HFA] 90 mcg/actuation HFA aerosol inhaler 1 inh INHALATION Q6H PRN (Reason: shortness of breath or wheezing) Qty: 18 2RF allopurinol 300 mg tablet 150 mg PO DAILY Qty: 45 3RF atorvastatin 10 mg tablet 10 mg PO DAILY Qty: 90 3RF furosemide 40 mg tablet 80 mg PO DAILY Qty: 180 3RF levothyroxine 125 mcg tablet See Rx Instructions .ROUTE .COMPLEX Qty: 90 3RF Dose Instruction: TAKE 1 TABLET BY MOUTH DAILY Rx Instructions: TAKE 1 TABLET BY MOUTH DAILY Qvar RediHaler 40 mcg/actuation HFA aerosol breath activated 1 puff INHALATION BID PRN ipratropium bromide 42 mcg (0.06 %) spray,non-aerosol 2 spray NASAL TID insulin lispro [Humalog KwikPen Insulin] 100 unit/mL insulin pen See Rx Instructions SUBCUT BEDTIME MDD 16 units PRN (Reason: t2dm) Qty: 15 5RF Rx Instructions: 2 - 8 units SQ SLIDING SCALE PRN (See scanned document for sliding scale). sertraline 100 mg tablet See Rx Instructions .ROUTE .COMPLEX Qty: 90 1RF Dose Instruction: TAKE 1 TABLET BY MOUTH DAILY Rx Instructions: TAKE 1 TABLET BY MOUTH DAILY spironolactone 25 mg tablet 25 mg PO DAILY Qty: 90 3RF tramadol 50 mg tablet 50 mg PO Q6H PRN (Reason: pain) Qty: 30 1RF Referrals: Manish Hicks, [Primary Care Provider] - Visit Report Forms: Patient Portal/API
[2022-04-20] MEDS: SODIUM CHLORIDE 0.9% 1,000 ML 500 ML IV (18:15)
[2022-04-20 18:22] LABS: Add Manual Diff / Slide Review NO; Basophils Absolute Auto 100 /uL (0-100); Basophils Percent Auto 0.6 % (0-2); Eosinophils Absolute Auto 100 /uL (0-450); Eosinophils Percent Auto 0.7 % (2-4); Hematocrit 34.9 % (36-46); Hemoglobin 11.9 g/dL (12.0-16.0); Lymphocytes Absolute Auto 1100 /uL (1100-4500); Lymphocytes Percent Auto 13.5 % (25-40); Mean Corpuscular HGB Conc 34.2 % (30-36); Mean Corpuscular Hemoglobin 33.5 PG (26-34); Mean Corpuscular Volume 97.8 fL (80-100); Monocytes Absolute Auto 900 /uL (0-900); Monocytes Percent Auto 10.9 % (3-14); Neutrophils Absolute Auto 6200 /uL (1500-7000); Neutrophils Percent Auto 74.3 % (50-75); Platelet Count 281 X10^3/uL (150-400); Red Blood Cell Count 3.56 X10^6/uL (4.0-5.2); Red Cell Distribution Width 15.2 % (11.6-14.8); White Blood Cell Count 8.3 X10^3/uL (4.5-11.0)
[2022-04-20 18:32] LABS: Alanine Aminotransferase 15 IU/L (<35); Albumin 3.9 g/dL (3.5-5.0); Albumin Globulin Ratio 1.2 (1.0-2.8); Alkaline Phosphatase 75 U/L (38-126); Aspartate Aminotransferase 17 IU/L (14-36); Bilirubin Total 0.5 mg/dL (0.2-1.3); Blood Urea Nitrogen 31 mg/dL (7-17); Calcium 8.7 mg/dL (8.4-10.2); Carbon Dioxide 25 mmol/L (22-32); Chloride 95 mmol/L (98-107); Creatine Kinase 21 U/L (30-135); Estimated Glomerular Filt Rate 8 mL/min (>60); Globulin 3.2 g/dL (1.7-4.1); Glucose 212 mg/dL (80-110); HEMOLYSIS < 15 (0-50); Lipase 55 U/L (23-300); Potassium 4.3 mmol/L (3.4-5.1); Sodium 134 mmol/L (137-145); Total Protein 7.1 g/dL (6.3-8.2)
[2022-04-20 18:43] LABS: Troponin I < 0.012 ng/mL (0.01-0.034)
[2022-04-20 18:47] LABS: COVID19 -Nasal RAPID Negative (Negative)
--- NOTE | 2022-04-20 19:25 | PC.NURSE ---
Pt reports lethargic, lightheadedness at rest, nausea, generalized weakness, and intermittent, stabbing chest pain in her right chest. Pt dx with shingles earlier this week. Pt missed her routine dialysis appt on , but reports going Wednesday. Provider aware.
== END 2022-04-20 21:00 | disposition home or self-care (01) ==
PROVIDERS: Emergency Medicine; Emergency Provider Emergency Medicine; PCP Family Medicine
DX: E86.0 Dehydration (principal); R42 Dizziness and giddiness; N18.6 End stage renal disease; Z99.2 Dependence on renal dialysis; R19.7 Diarrhea, unspecified; Z20.822 Contact with and (suspected) exposure to COVID-19
CPT/HCPCS: 36415; 71045; 80053; 82550; 83690; 84484; 85025; 87635; 93005; 96360; 96361; 99284; C9803

== ENCOUNTER → 2022-09-11 08:27 | Outpatient (CLI) | payer MEDICARE, SELFPAY ==
[2022-09-11 10:53] LABS: Free T4, Direct Thyroxine 1.13 ng/dL (0.78-2.19)
[2022-09-11 11:03] LABS: Hemoglobin A1C% w Est Avg Glu 7.2 % (4.0-6.0)
[2022-09-11 11:07] LABS: Thyroid Stimulating Hormone 6.31 uIU/mL (0.47-4.68)
== END ==
PROVIDERS: PCP Family Medicine; Referring Provider Family Medicine; Visit Provider Family Medicine
DX: E11.22 Type 2 diabetes mellitus with diabetic chronic kidney disease (principal); E03.9 Hypothyroidism, unspecified; I10 Essential (primary) hypertension; M1A.00X0 Idiopathic chronic gout, unspecified site, without tophus (tophi); N18.30 Chronic kidney disease, stage 3 unspecified; N18.9 Chronic kidney disease, unspecified; Z79.4 Long term (current) use of insulin
CPT/HCPCS: 36415; 83036; 84439; 84443

== ENCOUNTER → 2022-09-11 14:20 | Outpatient (CLI) | payer MEDICARE, SELFPAY ==
--- NOTE | 2022-09-11 15:24 | DI.RAD.S_ITS ---
PROCEDURE: XR LUMBAR SPINE 2-3V INDICATIONS: Lower back pain TECHNIQUE: 3 views of the lumbar spine were acquired. COMPARISON: None. FINDINGS: Bones: 5 [id number] vertebrae are present. There is normal bony alignment. No vertebral body compression fractures. No suspicious bony lesions. Moderate disc height loss at all levels, with opposing endplate sclerosis. Severe disc height loss at L1-2. Facet arthrosis L4 through S1. Soft tissues: Overlying bowel gas pattern is normal. No suspicious soft tissue calcifications. Calcified fibroids. IMPRESSION: Moderate to severe, multilevel degenerative disc disease and lower lumbar facet arthrosis. Dictated by: Luke Urrutia M.D. on 09/11/2022 at 17:04 Approved by: Luke Urrutia M.D. on 09/11/2022 at 17:06
== END ==
PROVIDERS: PCP Family Medicine; Referring Provider Family Medicine; Visit Provider Family Medicine
DX: M54.50 Low back pain, unspecified (principal); M51.36 Other intervertebral disc degeneration, lumbar region; M47.816 Spondylosis without myelopathy or radiculopathy, lumbar region; E11.22 Type 2 diabetes mellitus with diabetic chronic kidney disease; E03.9 Hypothyroidism, unspecified; I10 Essential (primary) hypertension; M1A.00X0 Idiopathic chronic gout, unspecified site, without tophus (tophi); N18.30 Chronic kidney disease, stage 3 unspecified; N18.9 Chronic kidney disease, unspecified; Z79.4 Long term (current) use of insulin
CPT/HCPCS: 36415; 72100; 83036; 84439; 84443

== ENCOUNTER 2022-12-31 20:39 | Emergency (ER) | payer MEDICARE, SELFPAY ==
[2022-12-31 20:47] VITALS: BP 188/75; PULSE 85; RESP 16; TEMP 36.7; O2SAT 97; BMI 32.1
[2022-12-31 21:06] LABS: Add Manual Diff / Slide Review NO; Basophils Absolute Auto 0 /uL (0-100); Basophils Percent Auto 0.3 % (0-2); Eosinophils Absolute Auto 200 /uL (0-450); Eosinophils Percent Auto 1.7 % (2-4); Hematocrit 38.9 % (36-46); Lymphocytes Absolute Auto 500 /uL (1100-4500); Lymphocytes Percent Auto 3.9 % (25-40); Mean Corpuscular HGB Conc 33.4 % (30-36); Mean Corpuscular Volume 95.8 fL (80-100); Monocytes Absolute Auto 500 /uL (0-900); Monocytes Percent Auto 4.3 % (3-14); Neutrophils Absolute Auto 10400 /uL (1500-7000); Neutrophils Percent Auto 89.8 % (50-75); Platelet Count 309 X10^3/uL (150-400); Red Blood Cell Count 4.05 X10^6/uL (4.0-5.2); Red Cell Distribution Width 16.9 % (11.6-14.8); White Blood Cell Count 11.6 X10^3/uL (4.5-11.0)
[2022-12-31 21:14] LABS: Alanine Aminotransferase 16 IU/L (<35); Albumin 4.5 g/dL (3.5-5.0); Albumin Globulin Ratio 1.3 (1.0-2.8); Alkaline Phosphatase 101 U/L (38-126); Aspartate Aminotransferase 28 IU/L (14-36); BUN Creatinine Ratio 6.1 (6-22); Bilirubin Total 0.8 mg/dL (0.2-1.3); Blood Urea Nitrogen 17 mg/dL (7-17); Calcium 8.7 mg/dL (8.4-10.2); Carbon Dioxide 31 mmol/L (22-32); Chloride 89 mmol/L (98-107); Estimated Glomerular Filt Rate 17 mL/min (>60); Globulin 3.6 g/dL (1.7-4.1); Glucose 130 mg/dL (80-110); HEMOLYSIS < 15 (0-50); Lipase 171 U/L (23-300); Potassium 3.6 mmol/L (3.4-5.1); Sodium 132 mmol/L (137-145); Total Protein 8.1 g/dL (6.3-8.2)
[2022-12-31 22:56] VITALS: BP 144/84; PULSE 81; O2SAT 95
[2022-12-31 23:00] VITALS: BP 156/70; PULSE 73; O2SAT 97
[2022-12-31 23:30] VITALS: BP 163/73; PULSE 72; RESP 12; O2SAT 95
[2023-01-01] VITALS (12 sets, daily range): BP systolic 118–153; BP diastolic 60–85; PULSE 71–87; RESP 12–20; O2SAT 93–98
[2023-01-01] MEDS: ONDANSETRON 4 MG/2 ML INJ IV (00:44)
--- NOTE | 2023-01-01 01:04 | ED.GENADULT ---
HPI - General Adult General Chief complaint: Weakness Stated complaint: N/V/D Time Seen by Provider: 01/01/23 00:42 Source: patient and EMS Mode of arrival: EMS History of Present Illness HPI narrative: Family at bedside. Patient brought in by ambulance for nausea vomiting diarrhea chills that started this evening. Patient denies any chest pain abdominal pain. No cough cold congestion. Unknown sick contacts. Patient in no distress. Patient was given Zofran by EMS as well as normal saline 500 mL prior to arrival. Patient states her mouth feels dry. She states she has been under targeted weight with dialysis and so she had last taken out today. Ended dialysis at 4:30 p.m.. She went home and felt very tired and took a nap. She awoke with chills body aches vomiting and diarrhea. Patient states urinates about 4 times a day. Denies any dysuria. Denies any chest pain abdominal pain back pain headache. Related Data Home Medications Medication Instructions Recorded Confirmed polyvinyl alcohol-povidone 0.5 1 kristal [facility] ##0 10/26/16 09/11/22 %-0.6 % eye drops (Artificial Tears (polyvinyl alcohol/povidone)) felodipine 5 mg tablet,extended 5 mg PO DAILY 03/18/18 09/11/22 release 24 hr acetaminophen 650 mg 650 mg PO BID 06/08/18 09/11/22 tablet,extended release (Tylenol Arthritis Pain) aflibercept 2 mg/0.05 mL intravitreal PRN 06/08/18 09/11/22 intravitreal solution for injection (Eylea) krill 1,000 mg-omega-3 170 mg-dha 2 cap PO ONCE PRN 01/23/22 09/11/22 50 mg-epa 80 hn-tbnoyr-lwjkc capsule (krill oil) allopurinol 100 mg tablet 50 mg PO DAILY 09/11/22 09/11/22 gabapentin 100 mg capsule 100 mg PO 09/11/22 09/11/22 sevelamer carbonate 800 mg tablet 800 mg PO 09/11/22 09/11/22 spironolactone 25 mg tablet 25 mg PO BID 09/11/22 Previous Rx's Medication Instructions Recorded parking permit #1 ea 06/26/19 Glucose: Test Strips #150 ea 01/01/20 lancets 33 gauge (BD Ultra Fine #300 ea 05/13/21 Lancets) insulin lispro 100 unit/mL See Rx Instructions SUBCUT BEDTIME 09/19/21 subcutaneous pen (Humalog KwikPen PRN t2dm #15 mL (U-100) Insulin) atorvastatin 10 mg tablet 10 mg PO DAILY #90 tabs 01/23/22 furosemide 40 mg tablet 80 mg PO DAILY #180 tabs 01/23/22 pen needle, diabetic 29 gauge x #100 ea 04/06/22 1/2 (BD Ultra-Fine Original Pen Needle) blood-glucose meter (Accu-Chek #1 ea 05/01/22 Guide Glucose Meter) ondansetron 4 mg disintegrating 4 mg PO DAILY PRN nausea and 05/01/22 tablet vomiting #30 tabs blood sugar diagnostic (Accu-Chek #100 ea 05/08/22 Guide test strips) albuterol sulfate 90 mcg/actuation See Rx Instructions .Route 07/27/22 aerosol inhaler .COMPLEX #8.5 grams ipratropium bromide 42 mcg (0.06 2 spray intranasal TID #15 mL 08/18/22 %) nasal spray fluticasone furoate 50 1 inh inhalation BID PRN asthma 08/27/22 mcg/actuation blister powder for #30 ea inhalation (Arnuity Ellipta) levothyroxine 137 mcg tablet 137 mcg PO DAILY #90 tabs 09/11/22 tramadol 50 mg tablet 50 mg PO Q6H PRN pain #30 tabs 10/14/22 insulin detemir U-100 100 unit/mL 30 unit (0.3 mL) SUBCUT BID #15 mL 10/23/22 (3 mL) subcutaneous pen (Levemir FlexPen) tramadol 100 mg tablet,extended 100 mg PO DAILY #30 tabs 12/02/22 release 24 hr sertraline 100 mg tablet See Rx Instructions .Route 12/29/22 .COMPLEX #90 tabs ondansetron 4 mg disintegrating 4 mg PO Q8H PRN nausea and 01/01/23 tablet vomiting #10 tabs Allergies Allergy/AdvReac Type Severity Reaction Status Date / Time No Known Drug Allergies Allergy Verified 09/11/22 13:26 Review of Systems Review of Systems Narrative: GENERAL: negative chills, fatigue, malaise, fever, sweats. HEENT: negative sinus pain, ear pain, sore throat RESPIRATORY: negative dyspnea, cough CARDIOVASCULAR: negative chest pain, palpitations GASTROINTESTINAL: Positive diarrhea and nausea, vomiting, negative abdominal pain : negative dysuria, frequency, hematuria, patient does still make urine MUSCULOSKELETAL: negative muscle or bony pain SKIN: negative rash, skin lesions NEUROLOGIC: negative weakness, numbness ROS Unobtainable: All systems reviewed & are unremarkable except as noted in HPI and below Patient History Medical History Anemia (Unknown) Arm fracture, left (01/2017) Carpal tunnel syndrome Chronic lower back pain CKD (chronic kidney disease) (Unknown) Diabetes (Unknown) Diabetic retinopathy (Unknown) Gout Herpes zoster Hyperlipemia (Unknown) Hypertension (Unknown) Hypothyroidism (Unknown) Osteopenia (Unknown) Parathyroid adenoma (~2012) Surgical History History of parathyroidectomy (~06/2013) Family History Father Heart problem Mother Diabetes mellitus Congestive heart failure Grandfather History of thyroidectomy Grandmother Diabetes mellitus Social History Smoking Status: Never smoker second hand exposure: No alcohol intake: never substance use type: does not use Smoking Status: Never smoker Substance Use Type: does not use Exam Narrative Exam Narrative: GENERAL: in no distress, not toxic not dyspneic HEAD: Normocephalic. EYES: Pupils equal round ENT: Slightly dry lips and tongue. NECK: Trachea midline. CARDIOVASCULAR: Regular rate and rhythm without murmurs RESPIRATORY: Clear to auscultation. Breath sounds equal bilaterally. No wheezes, rales, or rhonchi. GASTROINTESTINAL: Abdomen soft, non-tender abdomen soft nontender no peritoneal signs no pain out of proportion to exam. EXTREMITIES: No gross deformities. NEURO: AOx4. SKIN: Warm and dry PSYCH: Not anxious, is cooperative Initial Vital Signs Initial Vital Signs: Vital Signs Temperature 98.1 F 12/31/22 20:47 Pulse Rate 85 12/31/22 20:47 Respiratory Rate 16 12/31/22 20:47 Blood Pressure 188/75 H 12/31/22 20:47 Pulse Oximetry 97 12/31/22 20:47 Oxygen Delivery Method Room Air 12/31/22 20:47 Course Orders Ordered: ED Orders 01/01/23 01:13 Respiratory Panel (Film Array) Stat 01/01/23 01:15 Troponin & CK Cardiac Panel Stat Discontinued Medications Acetaminophen (Acetaminophen 325 Mg Tablet) 975 mg PO NOW ONE Stop: 01/01/23 01:26 Last Admin: 01/01/23 01:30 Dose: 975 mg Documented By: ALEX Sodium Chloride (Normal Saline 0.9%) 500 mls @ 1,000 mls/hr IV BOLUS ONE Stop: 01/01/23 03:24 Last Infusion: 01/01/23 03:24 Dose: 0 mls/hr Documented By: Admin: 01/01/23 03:02 Dose: 1,000 mls/hr Documented By: ALEX Ondansetron HCl (Ondansetron 4 Mg Odt) 4 mg PO NOW PRN PRN Reason: Nausea And Vomiting Ondansetron HCl (Ondansetron 4 Mg/2 Ml Inj) 4 mg IV NOW PRN PRN Reason: Nausea And Vomiting Last Admin: 01/01/23 00:44 Dose: 4 mg Documented By: ALEX Vital Signs Vital signs: Vital Signs - 8 hr 12/31/22 23:30 12/31/22 23:30 01/01/23 00:00 Pulse Rate 72 74 Respiratory Rate 12 12 Blood Pressure 163/73 H Pulse Oximetry 95 95 Oxygen Delivery Method Room Air Room Air 01/01/23 00:01 01/01/23 00:01 01/01/23 00:30 Pulse Rate 71 Respiratory Rate 15 Blood Pressure 145/64 H 125/85 Pulse Oximetry 95 Oxygen Delivery Method Room Air 01/01/23 00:30 01/01/23 01:00 01/01/23 01:00 Pulse Rate 74 75 Respiratory Rate 20 20 Blood Pressure 131/71 Pulse Oximetry 97 98 Oxygen Delivery Method Room Air Room Air 01/01/23 01:30 01/01/23 01:30 01/01/23 02:00 Pulse Rate 78 Respiratory Rate 12 Blood Pressure 133/64 118/65 Pulse Oximetry 94 Oxygen Delivery Method Room Air 01/01/23 02:00 01/01/23 02:30 01/01/23 02:31 Pulse Rate 87 77 82 Respiratory Rate 13 17 13 Blood Pressure Pulse Oximetry 96 93 94 Oxygen Delivery Method Room Air Room Air Room Air 01/01/23 02:31 01/01/23 02:47 01/01/23 02:47 Pulse Rate 77 Respiratory Rate Blood Pressure 153/70 H 148/74 H Pulse Oximetry 97 Oxygen Delivery Method Room Air 01/01/23 03:00 01/01/23 03:01 01/01/23 03:01 Pulse Rate 80 79 Respiratory Rate Blood Pressure 131/60 Pulse Oximetry 96 95 Oxygen Delivery Method Room Air 01/01/23 03:30 01/01/23 03:30 Pulse Rate 78 Respiratory Rate Blood Pressure 141/66 H Pulse Oximetry 97 Oxygen Delivery Method Room Air Medical Decision Making Lab Data 12/31/22 20:55 12/31/22 20:55 Labs: Lab Results 12/31/22 12/31/22 01/01/23 Range/Units 20:55 20:55 01:13 WBC 11.6 H (4.5-11.0) X10^3/uL RBC 4.05 (4.0-5.2) X10^6/uL Hgb 13.0 (12.0-16.0) g/dL Hct 38.9 (36-46) % MCV 95.8 (80-100) fL MCH 32.0 (26-34) PG MCHC 33.4 (30-36) % RDW 16.9 H (11.6-14.8) % Plt Count 309 (150-400) X10^3/uL Neut % (Auto) 89.8 H (50-75) % Lymph % (Auto) 3.9 L (25-40) % Lipscomb % (Auto) 4.3 (3-14) % Eos % (Auto) 1.7 L (2-4) % Baso % (Auto) 0.3 (0-2) % Neut # (Auto) 89895 H (8442-1323) /uL Lymph # (Auto) 500 L (4960-0211) /uL Lipscomb # (Auto) 500 (0-900) /uL Eos # (Auto) 200 (0-450) /uL Baso # (Auto) 0 (0-100) /uL Sodium 132 L (137-145) mmol/L Potassium 3.6 (3.4-5.1) mmol/L Chloride 89 L (98-107) mmol/L Carbon Dioxide 31 (22-32) mmol/L BUN 17 (7-17) mg/dL Creatinine 2.79 H (0.52-1.04) mg/dL Estimated GFR 17 L (>60) mL/min BUN/Creatinine Ratio 6.1 (6-22) Glucose 130 H (80-110) mg/dL Calcium 8.7 (8.4-10.2) mg/dL Total Bilirubin 0.8 (0.2-1.3) mg/dL AST 28 (14-36) IU/L ALT 16 (<35) IU/L Alkaline Phosphatase 101 (38-126) U/L Total Creatine Kinase (30-135) U/L Troponin I (0.01-0.034) ng/mL Total Protein 8.1 (6.3-8.2) g/dL Albumin 4.5 (3.5-5.0) g/dL Globulin 3.6 (1.7-4.1) g/dL Albumin/Globulin Ratio 1.3 (1.0-2.8) Lipase 171 (23-300) U/L Chlamy pneumoniae PCR Not detected (Not Detect) Adenovirus (PCR) Not detected (Not Detect) B. pertussis DNA (PCR) Not detected (Not Detecte) B.parapertussis DNA PCR Not detected (Not Detecte) Coronavirus OC43 (PCR) Not detected (Not Detect) Coronavirus HKU1 (PCR) Not detected (Not Detect) Coronavirus 229E (PCR) Not detected (Not Detect) SARS-CoV-2 (PCR) Not detected (Not Detecte) Coronavirus NL63 (PCR) Not detected (Not Detect) Human Metapneumovir PCR Not detected (Not Detect) Influenza Type A (PCR) Not detected (Not Detect) Influenza Type B (PCR) Not detected (Not Detect) M. pneumoniae (PCR) Not detected (Not Detect) Parainfluenza 1 (PCR) Not detected (Not Detect) Parainfluenza 2 (PCR) Not detected (Not Detect) Parainfluenza 3 (PCR) Not detected (Not Detect) Parainfluenza 4 (PCR) Not detected (Not Detect) RSV (PCR) Not detected (Not Detect) Entero/Rhino (PCR) Not detected (Not Detect) 01/01/23 Range/Units 01:15 WBC (4.5-11.0) X10^3/uL RBC (4.0-5.2) X10^6/uL Hgb (12.0-16.0) g/dL Hct (36-46) % MCV (80-100) fL MCH (26-34) PG MCHC (30-36) % RDW (11.6-14.8) % Plt Count (150-400) X10^3/uL Neut % (Auto) (50-75) % Lymph % (Auto) (25-40) % Lipscomb % (Auto) (3-14) % Eos % (Auto) (2-4) % Baso % (Auto) (0-2) % Neut # (Auto) (7758-9251) /uL Lymph # (Auto) (9948-5800) /uL Lipscomb # (Auto) (0-900) /uL Eos # (Auto) (0-450) /uL Baso # (Auto) (0-100) /uL Sodium (137-145) mmol/L Potassium (3.4-5.1) mmol/L Chloride (98-107) mmol/L Carbon Dioxide (22-32) mmol/L BUN (7-17) mg/dL Creatinine (0.52-1.04) mg/dL Estimated GFR (>60) mL/min BUN/Creatinine Ratio (6-22) Glucose (80-110) mg/dL Calcium (8.4-10.2) mg/dL Total Bilirubin (0.2-1.3) mg/dL AST (14-36) IU/L ALT (<35) IU/L Alkaline Phosphatase (38-126) U/L Total Creatine Kinase 20 L (30-135) U/L Troponin I < 0.012 (0.01-0.034) ng/mL Total Protein (6.3-8.2) g/dL Albumin (3.5-5.0) g/dL Globulin (1.7-4.1) g/dL Albumin/Globulin Ratio (1.0-2.8) Lipase (23-300) U/L Chlamy pneumoniae PCR (Not Detect) Adenovirus (PCR) (Not Detect) B. pertussis DNA (PCR) (Not Detecte) B.parapertussis DNA PCR (Not Detecte) Coronavirus OC43 (PCR) (Not Detect) Coronavirus HKU1 (PCR) (Not Detect) Coronavirus 229E (PCR) (Not Detect) SARS-CoV-2 (PCR) (Not Detecte) Coronavirus NL63 (PCR) (Not Detect) Human Metapneumovir PCR (Not Detect) Influenza Type A (PCR) (Not Detect) Influenza Type B (PCR) (Not Detect) M. pneumoniae (PCR) (Not Detect) Parainfluenza 1 (PCR) (Not Detect) Parainfluenza 2 (PCR) (Not Detect) Parainfluenza 3 (PCR) (Not Detect) Parainfluenza 4 (PCR) (Not Detect) RSV (PCR) (Not Detect) Entero/Rhino (PCR) (Not Detect) MDM Narrative Medical decision making narrative: Family at bedside. Patient brought in by ambulance for nausea vomiting diarrhea chills that started this evening. Patient denies any chest pain abdominal pain. No cough cold congestion. Unknown sick contacts. Patient in no distress. Patient was given Zofran by EMS as well as normal saline 500 mL prior to arrival. Patient states her mouth feels dry. She states she has been under targeted weight with dialysis and so she had last taken out today. Ended dialysis at 4:30 p.m.. She went home and felt very tired and took a nap. She awoke with chills body aches vomiting and diarrhea. Patient states urinates about 4 times a day. Denies any dysuria. Denies any chest pain abdominal pain back pain headache. After history and exam CBC CMP respiratory panel EKG troponin urinalysis MDM CC: Chills body aches nausea vomiting diarrhea Complicating co-morbidities: Chronic renal failure dialysis Data collected from: Patient and family Medical records reviewed: No recent visit for this complaint Differential considered: Includes but not limited to viral infection UTI pneumonia STEMI non-STEMI Exam documented above, pertinent findings include nontender abdomen, slightly dry lips and tongue Lab Test results independently reviewed as above. Pertinent findings: WBC 11.6 hemoglobin 13 sodium 132 potassium 3.6 chloride 89 BUN 17 creatinine 2.79 GFR 17 AST 28 ALT 16 Independently reviewed EKG normal sinus rhythm rate [address] elevation or depression Imaging studies independently reviewed: None indicated this time. No abdominal pain no respiratory complaints Consultations: None indicated at this time Treatments: Zofran/Tylenol/normal saline Re-evaluations: 3:29 a.m.. Patient feeling much better. No vomiting during course of stay. Unable to provide urine sample for analysis. Patient and family desire discharge home. Exam and laboratory studies are reassuring. No imaging indicated. No pain. Discussion: Appropriate for discharge home. Exam and laboratory studies are reassuring. Patient improved with Zofran and normal saline infusion. Return precautions reviewed with her and family. They desire discharge home. No imaging indicated this time. No fever. No leukocytosis no complaints of pain. Prescription for Zofran provided. Patient and family desire discharge home. Diagnosis: Acute vomiting Discharge Plan Departure Patient Disposition: Home Clinical Impression: Acute vomiting Instructions: DI for Vomiting -- Adult Activity Restrictions/Additional Instructions: See family doctor within a week for re-evaluation. Please keep well hydrated. May continue home medications. Return if worse if any questions or concerns. At this time laboratory studies are reassuring. Prescriptions: New ondansetron 4 mg tablet,disintegrating 4 mg PO Q8H PRN (Reason: nausea and vomiting) Qty: 10 0RF No Action felodipine 5 mg tablet extended release 24 hr 5 mg PO DAILY acetaminophen [Tylenol Arthritis Pain] 650 mg tablet extended release 650 mg PO BID aflibercept [Eylea] 2 mg/0.05 mL solution INTRAVITRE PRN Patient Comments: Dr. Quezada for DMR & DR pateldcoxa-[id number]-hig-rzr-iitbdtj-ast [krill oil] [id number] mg capsule 2 cap PO ONCE PRN polyvinyl alcohol-povidone [Artificial Tears(pvalch-povid)] 15 ML drops 1 drp OPHTH QID Qty: 0 (DME) Glucose: Test Strips 0 .Route .MEDSUPPLY Qty: 150 3RF Dose Instruction: As directed Rx Instructions: Use to test blood sugars twice daily. One touch Nadya. (DME) lancets [BD Ultra Fine Lancets] 33 gauge misc See Rx Instructions .ROUTE .MEDSUPPLY Qty: 300 8RF Rx Instructions: Use to test blood glucose TID (DME) pen needle, diabetic [BD Ultra-Fine Orig Pen Needle] 29 gauge x 1/2 needle See Rx Instructions .Route Qty: 100 3RF Rx Instructions: Use with Kwik Pen to inject insulin TID according to sliding scale. (DME) Accu-Chek Guide test strips Strip See Rx Instructions .Route Qty: 100 5RF Rx Instructions: Test glucose twice a day albuterol sulfate 90 mcg/actuation HFA aerosol inhaler See Rx Instructions .ROUTE .COMPLEX Qty: 8.5 0RF Dose Instruction: USE ONE PUFF INTO THE LUNGS EVERY SIX HOURS NEEDED FOR SHORTNESS OF BREATH OR WHEEZING Rx Instructions: USE ONE PUFF INTO THE LUNGS EVERY SIX HOURS NEEDED FOR SHORTNESS OF BREATH OR WHEEZING ipratropium bromide 42 mcg (0.06 %) spray,non-aerosol 2 spray NASAL TID Qty: 15 2RF Arnuity Ellipta 50 mcg/actuation blister with device 1 inh inhalation BID PRN (Reason: asthma ) Qty: 30 1RF tramadol 50 mg tablet 50 mg PO Q6H PRN (Reason: pain) Qty: 30 1RF Levemir FlexPen 100 unit/mL (3 mL) insulin pen 30 unit SUBCUT BID Qty: 15 4RF sertraline 100 mg tablet See Rx Instructions .ROUTE .COMPLEX Qty: 90 1RF Dose Instruction: TAKE 1 TABLET BY MOUTH DAILY Rx Instructions: TAKE 1 TABLET BY MOUTH DAILY (DME) parking permit Qty: 1 0RF Rx Instructions: As directed atorvastatin 10 mg tablet 10 mg PO DAILY Qty: 90 3RF furosemide 40 mg tablet 80 mg PO DAILY Qty: 180 3RF tramadol 100 mg tablet extended release 24 hr 100 mg PO DAILY Qty: 30 2RF insulin lispro [Humalog KwikPen Insulin] 100 unit/mL insulin pen See Rx Instructions SUBCUT BEDTIME MDD 16 units PRN (Reason: t2dm) Qty: 15 5RF Rx Instructions: 2 - 8 units SQ SLIDING SCALE PRN (See scanned document for sliding scale). ondansetron 4 mg tablet,disintegrating 4 mg PO DAILY PRN (Reason: nausea and vomiting) Qty: 30 1RF (DME) blood-glucose meter [Accu-Chek Guide Glucose Meter] [facility] [place] Instructions .Route Qty: 1 0RF Rx Instructions: As directed sevelamer carbonate 800 mg tablet 800 mg PO Patient Comments: TAKE 2 TABLETS BY MOUTH WITH BREAKFAST AND TAKE 2 TABLETS WITH LUNCH AND 3 TABLETS WITH DINNER spironolactone 25 mg tablet 25 mg PO BID allopurinol 100 mg tablet 50 mg PO DAILY gabapentin 100 mg capsule 100 mg PO levothyroxine 137 mcg tablet 137 mcg PO DAILY Qty: 90 3RF Referrals: Manish Hicks, [Primary Care Provider] - Stand Alone Forms: Patient Portal/API
[2023-01-01] MEDS: ACETAMINOPHEN 325 MG TABLET 975 MG PO (01:30)
[2023-01-01 01:34] LABS: Creatine Kinase 20 U/L (30-135)
[2023-01-01 01:47] LABS: Troponin I < 0.012 ng/mL (0.01-0.034)
[2023-01-01 02:15] LABS: Adenovirus Not Detected (Not Detect); B. parapertussis Not Detected (Not Detecte); Bordetella pertussis Not Detected (Not Detecte); Chlamydophila pneumoniae Not Detected (Not Detect); Coronavirus 229E Not Detected (Not Detect); Coronavirus HKU1 Not Detected (Not Detect); Coronavirus NL 63 Not Detected (Not Detect); Coronavirus OC43 Not Detected (Not Detect); Human Metapneumovirus Not Detected (Not Detect); Human Rhinovirus/Enterovirus Not Detected (Not Detect); Influenza A Not Detected (Not Detect); Influenza B Not Detected (Not Detect); Mycoplasma pneumoniae Not Detected (Not Detect); Parainfluenza Virus 1 Not Detected (Not Detect); Parainfluenza Virus 2 Not Detected (Not Detect); Parainfluenza Virus 3 Not Detected (Not Detect); Parainfluenza Virus 4 Not Detected (Not Detect); Respiratory Syncytial Virus Not Detected (Not Detect); SARS- CoV-2 Not Detected (Not Detecte)
--- NOTE | 2023-01-01 02:57 | PC.NURSE ---
Patient attempted void in collection hat fro sample and missed, had stool mixed in toilet with urine. Dr. Iverson notified.
[2023-01-01] MEDS: SODIUM CHLORIDE 0.9% 500 ML 1000 ML IV (03:02)
== END 2023-01-01 03:38 | disposition home or self-care (01) ==
PROVIDERS: Emergency Provider Emergency Medicine; PCP Family Medicine
DX: R11.2 Nausea with vomiting, unspecified (principal); R19.7 Diarrhea, unspecified; R10.9 Unspecified abdominal pain; Z20.822 Contact with and (suspected) exposure to COVID-19
CPT/HCPCS: 36415; 80053; 82550; 83690; 84484; 85025; 87633; 93005; 96374; 99284; J2405

== ENCOUNTER 2023-02-24 08:52 | Outpatient (CLI) | payer MEDICARE, SELFPAY ==
--- NOTE | 2023-02-24 08:54 | DI.RAD.S_ITS ---
PROCEDURE: PAIN L/S TRANSFORAMINAL INJECT INDICATIONS: SPONDYLOSIS COMPARISON: [facility], RG, MRI L-SPINE W/O CONTRAST, 12/16/2022, 14:48. [facility], CR, XR LUMBAR SPINE 2-3V, 09/11/2022, 15:42. FINDINGS: Fluoroscopic spot filming was performed to verify placement of spinal needles left at the L3-L4 and L4-L5 levels, as labeled on the films. Appropriate location of the needle tips was confirmed by injection of iodinated contrast. IMPRESSION: Intraprocedural examination demonstrating appropriate positions of the needles. Dictated by: Jam Younger M.D. on 02/24/2023 at 10:00 Approved by: Jam Younger M.D. on 02/24/2023 at 10:06
[2023-02-24 09:00] VITALS: BP 146/66; PULSE 71; RESP 20; TEMP 36.5; O2SAT 98
[2023-02-24 09:28] VITALS: BP 186/90; PULSE 64; RESP 17; O2SAT 97
[2023-02-24] MEDS: IOPAMIDOL 15 ML VIAL 3 ML INJ (09:31)
[2023-02-24] MEDS: DEXAMETHASONE 10 MG/ML VIAL 20 MG INJ (09:31)
[2023-02-24 09:33] VITALS: BP 189/89; PULSE 66; RESP 14; O2SAT 96
[2023-02-24 09:38] VITALS: BP 186/87; PULSE 67; RESP 18; O2SAT 96
[2023-02-24 09:43] VITALS: BP 195/85; PULSE 67; RESP 22; O2SAT 97
--- NOTE | 2023-02-24 09:49 | P.PCN_ITS ---
Date/Time/Diagnoses Date of procedure: 02/24/23 Time of procedure: 09:30 Procedure Notes Physician: Troy Fernandes Total Fluoroscopy time (seconds): 45 Total sedation minutes: 0 Procedure in detail & Post-procedure care: Left L3-4 and L4-5 Transforaminal Epidural Steroid Injection Indications: Joanne is presenting for treatment of lumbar radiculopathy with low back and leg pain. Preoperative diagnosis: Lumbar radiculopathy Postoperative diagnosis: Same Focused Examination: Ax3 Mood and affect are normal Vital Signs: VSS Consent: Following review of allergies and potential side effects/complications, including, but not necessarily limited to, infection, allergic reaction, local tissue breakdown, stroke, temporary or permanent nerve injury, paralysis, and possible , the patient indicated that they understood and agreed to proceed.? An informed consent document was signed by the patient, witnessed by a nurse and placed in the patient's chart.? Additionally, other treatment options including medications and physical therapy were reviewed with the patient. All questions were answered. Site was then marked. Anesthesia: Local Position: Prone Monitoring: NIBP, Pulse oximetry, 3 lead EKG Needle used: 22G, 5 inch spinal needle Contrast: Isovue 300M Injectate: 7.5 mg Dexamethasone mixed with 1% lidocaine 1 ml and normal saline 1 mL per site Technique: The skin was prepped with chloraprep and draped in a sterile fashion. Time out was performed as per protocol. Oxygen applied via NC. Skin and subcutaneous structures of the needle entry site were infiltrated with 3mL of lidocaine 1%. Under fluoroscopic guidance, using an ipsilateral oblique view,?a 22 gauge 5 inch needle was advanced to the base of the left L3?pedicle.? The needle was advanced to the superio-posterior aspect of the neural foramen under lateral view.? Oblique and AP views were rechecked. No paresthesias noted by the patient during needle placement. In AP view and utilizing real-time digital subtraction fluoroscopy, 2 ml contrast was slowly injected. Epidural spread was observed without evidence for intravascular nor intrathecal uptake. Contrast spread was seen craniocaudally. The above injectate was then administered, and the needle was subsequently withdrawn. Under fluoroscopic guidance, using an ipsilateral oblique view,?a 22 gauge 5 inch needle was advanced to the base of the left L4?pedicle.? The needle was advanced to the superio-posterior aspect of the neural foramen under lateral view.? Oblique and AP views were rechecked. No paresthesias noted by the patient during needle placement. In AP view and utilizing real-time digital subtraction fluoroscopy, 2 ml contrast was slowly injected. Epidural spread was observed without evidence for intravascular nor intrathecal uptake. Contrast spread was seen craniocaudally. The above injectate was then administered, and the needle was subsequently withdrawn. Band-Aids applied to injection sites. EBL: less than 1 ml Complications: None Post Procedure: Patient was taken to the recovery and monitored. The patient was provided a Pain Log to continue to record the patient's response to the target- specific procedure prior to the patient's follow-up visit with the referring physician. Patient was stable upon discharge. Detailed post procedure instructions were provided. Patient was asked to call in the event of worsening pain, fever, weakness, numbness or bladder or bowel incontinence.
[2023-02-24 09:50] VITALS: BP 168/72; PULSE 62; RESP 18; O2SAT 98
== END 2023-02-24 10:00 | disposition home or self-care (01) ==
LOC: RAD 08:53
PROVIDERS: PCP Family Medicine; Referring Provider Anesthesiology; Visit Provider Anesthesiology
DX: M54.16 Radiculopathy, lumbar region (principal)
CPT/HCPCS: 64483; 64484; J1100

== ENCOUNTER → 2023-03-24 14:53 | Outpatient (CLI) | payer MEDICARE, SELFPAY ==
--- NOTE | 2023-03-24 14:55 | DI.RAD.S_ITS ---
PROCEDURE: XR HIP W PEL IF DONE RONNY MIN 4V INDICATIONS: Hip pain TECHNIQUE: AP pelvis with lateral view(s) of the right and left hip(s). COMPARISON: None. FINDINGS: Bones: No acute fracture or dislocation identified. Severe degenerative changes of the left hip with joint space loss, articular surface deformity, subchondral sclerosis and cystic change. Mild right hip degenerative changes present. Soft tissues: The visualized bowel gas pattern is normal. Coarse calcifications projecting over the pelvis could represent uterine fibroids. IMPRESSION: Severe left hip degenerative changes. Mild degenerative changes of the right hip also demonstrated. No acute fracture or dislocation identified Dictated by: Matt Seaman M.D. on 03/24/2023 at 22:00 Approved by: Matt Seaman M.D. on 03/24/2023 at 22:02
== END ==
PROVIDERS: PCP Family Medicine; Referring Provider Anesthesiology; Visit Provider Anesthesiology
DX: M25.552 Pain in left hip (principal); M25.551 Pain in right hip
CPT/HCPCS: 73522

== ENCOUNTER → 2023-04-19 15:55 | Outpatient (CLI) | payer MEDICARE, SELFPAY ==
[2023-04-25 19:37] LABS: H. Pylori Antigen Stool Negative (Negative)
== END ==
PROVIDERS: PCP Family Medicine; Referring Provider Family Medicine; Visit Provider Family Medicine
DX: R19.7 Diarrhea, unspecified (principal); N18.9 Chronic kidney disease, unspecified; E11.22 Type 2 diabetes mellitus with diabetic chronic kidney disease; Z79.4 Long term (current) use of insulin
CPT/HCPCS: 87045; 87324; 87338; 87899

== ENCOUNTER → 2023-04-26 13:13 | Outpatient (CLI) | payer MEDICARE, SELFPAY ==
[2023-04-26 14:35] LABS: Add Manual Diff / Slide Review NO; Basophils Absolute Auto 100 /uL (0-100); Basophils Percent Auto 0.6 % (0-2); Eosinophils Absolute Auto 300 /uL (0-450); Hematocrit 33.7 % (36-46); Hemoglobin 11.2 g/dL (12.0-16.0); Lymphocytes Absolute Auto 1200 /uL (1100-4500); Lymphocytes Percent Auto 11.3 % (25-40); Mean Corpuscular HGB Conc 33.3 % (30-36); Mean Corpuscular Hemoglobin 32.3 PG (26-34); Monocytes Absolute Auto 900 /uL (0-900); Neutrophils Absolute Auto 8400 /uL (1500-7000); Neutrophils Percent Auto 77.1 % (50-75); Platelet Count 314 X10^3/uL (150-400); Red Blood Cell Count 3.48 X10^6/uL (4.0-5.2); Red Cell Distribution Width 15.1 % (11.6-14.8); White Blood Cell Count 10.9 X10^3/uL (4.5-11.0)
[2023-04-26 15:30] LABS: Alanine Aminotransferase 11 IU/L (<35); Albumin 3.9 g/dL (3.5-5.0); Albumin Globulin Ratio 1.2 (1.0-2.8); Alkaline Phosphatase 99 U/L (38-126); Aspartate Aminotransferase 21 IU/L (14-36); BUN Creatinine Ratio 6.8 (6-22); Bilirubin Total 0.3 mg/dL (0.2-1.3); Blood Urea Nitrogen 38 mg/dL (7-17); Calcium 9.2 mg/dL (8.4-10.2); Carbon Dioxide 28 mmol/L (22-32); Chloride 93 mmol/L (98-107); Estimated Glomerular Filt Rate 7 mL/min (>60); Globulin 3.2 g/dL (1.7-4.1); Glucose 178 mg/dL (80-110); HEMOLYSIS < 15 (0-50); Lipase 216 U/L (23-300); Potassium 3.7 mmol/L (3.4-5.1); Sodium 133 mmol/L (137-145); Total Protein 7.1 g/dL (6.3-8.2)
[2023-04-28 08:10] LABS: Calcium 8.8 mg/dL (8.7-10.3); Parathyroid Hormone, Intact 238 pg/mL (15-65)
== END ==
PROVIDERS: PCP Family Medicine; Referring Provider Family Medicine; Visit Provider Family Medicine
DX: E11.22 Type 2 diabetes mellitus with diabetic chronic kidney disease (principal); Z79.4 Long term (current) use of insulin; I10 Essential (primary) hypertension; E03.9 Hypothyroidism, unspecified; D35.1 Benign neoplasm of parathyroid gland; R19.7 Diarrhea, unspecified; N18.9 Chronic kidney disease, unspecified
CPT/HCPCS: 36415; 80053; 82310; 83690; 83970; 85025

== ENCOUNTER → 2023-04-28 13:42 | Outpatient (CLI) | payer MEDICARE, SELFPAY | PROVIDERS: PCP Family Medicine; Referring Provider Family Medicine; Visit Provider Family Medicine | DX: Z79.4 Long term (current) use of insulin (principal) | CPT/HCPCS: 87324; 87338 ==

== ENCOUNTER 2023-09-28 23:10 | Emergency (ER) | payer MEDICARE, SELFPAY ==
[2023-09-28 23:12] VITALS: BP 102/52; PULSE 82; RESP 16; TEMP 37.6; O2SAT 97
[2023-09-28 23:14] VITALS: PULSE 96
[2023-09-28 23:15] VITALS: BP 91/49
[2023-09-28 23:30] VITALS: BP 94/47; PULSE 81; RESP 18; O2SAT 94
--- NOTE | 2023-09-28 23:39 | PC.NURSE ---
Pt arrives with central line in RIGHT chest which is used for dialysis. 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
[2023-09-28 23:40] VITALS: BP 109/54; PULSE 83; RESP 20; O2SAT 95
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
[2023-09-28 23:49] LABS: BUN Creatinine Ratio 8.8 (6-22); Blood Urea Nitrogen 34 mg/dL (7-17); Calcium 7.4 mg/dL (8.4-10.2); Carbon Dioxide 30 mmol/L (22-32); Chloride 96 mmol/L (98-107); Estimated Glomerular Filt Rate 11 mL/min (>60); Glucose 140 mg/dL (80-110); HEMOLYSIS < 15 (0-50); Potassium 4.1 mmol/L (3.4-5.1); Sodium 131 mmol/L (137-145)
[2023-09-28 23:50] VITALS: BP 110/53; PULSE 82; RESP 12; O2SAT 95
[2023-09-29] VITALS (24 sets, daily range): BP systolic 97–128; BP diastolic 47–63; PULSE 75–85; RESP 15–21; TEMP 37.6; O2SAT 94–100
[2023-09-29 00:03] LABS: Add Manual Diff / Slide Review NO; Basophils Absolute Auto 0 /uL (0-100); Basophils Percent Auto 0.1 % (0-2); Eosinophils Absolute Auto 100 /uL (0-450); Eosinophils Percent Auto 0.5 % (2-4); Hematocrit 25.4 % (36-46); Hemoglobin 8.4 g/dL (12.0-16.0); Lymphocytes Absolute Auto 800 /uL (1100-4500); Lymphocytes Percent Auto 5.1 % (25-40); Mean Corpuscular Hemoglobin 33.2 PG (26-34); Mean Corpuscular Volume 100.8 fL (80-100); Monocytes Absolute Auto 1700 /uL (0-900); Monocytes Percent Auto 10.4 % (3-14); Neutrophils Absolute Auto 13600 /uL (1500-7000); Neutrophils Percent Auto 83.9 % (50-75); Platelet Count 346 X10^3/uL (150-400); Red Blood Cell Count 2.52 X10^6/uL (4.0-5.2); Red Cell Distribution Width 16.1 % (11.6-14.8); White Blood Cell Count 16.2 X10^3/uL (4.5-11.0)
[2023-09-29] MEDS: ACETAMINOPHEN 325 MG TABLET 650 MG PO (04:57)
== END 2023-09-29 05:04 | disposition home or self-care (01) ==
PROVIDERS: Emergency Provider Emergency Medicine; PCP Family Medicine
DX: I95.9 Hypotension, unspecified (principal)
CPT/HCPCS: 36415; 80048; 85025; 93005; 93010; 99283

== ENCOUNTER → 2023-10-04 21:19 | Outpatient (ROUT) | payer MEDICARE, SELFPAY ==
[2023-10-05 00:24] LABS: Clostridium Difficile Tox PCR Positive for C. diff (Negative)
[2023-10-06 18:09] LABS: C difficie Toxins A and B, EIA Positive (Negative)
== END ==
PROVIDERS: PCP Family Medicine; Visit Provider Nurse Practitioner
DX: A04.72 Enterocolitis due to Clostridium difficile, not specified as recurrent (principal)
CPT/HCPCS: 87324; 87493